=== PATIENT | female | born 1985 | race Caucasian/White ===

== ENCOUNTER 2018-03-18 18:02 | Outpatient (REF) | payer MEDICAID, SELFPAY ==
--- NOTE | 2018-03-18 15:00 | PAPFTD_PTH ---
PATIENT: EMA MCCARTHY LOC: [facility] U#:[id number] AGE/SX: 32/F ROOM: RE03/18/[address]: aSrah Kam CNM : 1985 BED: DIS: 03/18/2018 SPEC #: [id number] RECD: 03/18/18 18:29 STATUS: AMANDA REYared #: [id number] FLACO: 03/18/18 15:[address]: Sarah Kam DEPT: [facility] Cytology RECD BY: Jaci Negron ENTERED: 03/18/18 18:30 SP TYPE: PAPFTD OTHR DR: Bozena Tom Tissues: 1 - CX/ENDOCX FOR PAP SMEARS Procedures: PAP THIN PREP/UVM Diagnostic HPV DNA PROBE Comments: [id number]
== END 2018-03-18 18:22 ==
LOC: LBN 18:02
PROVIDERS: PCP Family Medicine; Visit Provider Advanced Practice Midwife
DX: Z12.4 Encounter for screening for malignant neoplasm of cervix (principal); Z11.51 Encounter for screening for human papillomavirus (HPV)
CPT/HCPCS: 88175; 87624

== ENCOUNTER 2018-06-20 01:40 | Outpatient (CLI) | payer MEDICAID, SELFPAY ==
--- NOTE | 2018-06-20 15:30 | NS.NUTBLAN_ITS ---
Ms. Summers presents for nutritional counseling for weight management. 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 She reports that she is having trouble losing her weight. She is currently 65 and 181 lbs. Her BMI is 30 kg/m2 consistent with class 1 obesity. She states she would like to get back to her pre weight of 150 to 160 lbs. Ms. Summers describes being very busy caring for her three young children and then when it comes time for her to eat, she will just grab sweets. She is going to start doing one meal replacement shake. Encouraged her to keep up with that idea. I suggested that for two other meals, she have bagged salads or other pre-made meals available for her even though that is not usually ideal. We discussed that in her case, the alternative is not working well for her. Ms. Summers verbalized that she knows what she has to do and that she has no motivation. We discussed that the motivation will have to come from within her and figuring out her barriers and continuing to work with a therapist will help with that as well. Provided some written materials regarding general nutrition information. Total time spent face to face 35 minutes.
== END 2018-06-20 02:00 ==
PROVIDERS: PCP Family Medicine; Visit Provider Dietitian, Registered
DX: E66.8 Other obesity (principal); Z68.30 Body mass index [BMI] 30.0-30.9, adult; Z71.3 Dietary counseling and surveillance
CPT/HCPCS: 97802

== ENCOUNTER 2018-07-20 15:25 | Observation (INO) | payer MEDICAID, SELFPAY ==
[2018-07-20] VITALS (12 sets, daily range): BP systolic 101–141; BP diastolic 60–69; PULSE 69–91; RESP 13–18; TEMP 36.5–36.7; O2SAT 98–100
[2018-07-20] MEDS: Lidocaine 5% Patch 1 PATCH TP (15:37)
--- NOTE | 2018-07-20 15:42 | DI.CT_ITS ---
SYMPTOM/DIAGNOSIS: RT NECK PAIN, ? CAROTID OR VERTEBRAL DISSECTION, ? STROKE CRANIAL CT (WITHOUT CONTRAST): A noncontrast cranial CT was performed. The ventricular system is normal in appearance. There is no evidence of an intracranial mass lesion. There is no evidence of a subdural or epidural hematoma. No focal areas of decreased attenuation are seen. CONCLUSION: Normal noncontrast Cranial CT. CT ANGIOGRAPHY CERVICAL REGION: CT angiography was performed with multi slice acquisition and multi planar and 3D reconstruction. CT angiography of the cervical region was performed with a bolus infusion of 78 cc's of Omnipaque 350. Images obtained through the region of the aortic arch show no evidence of aortic dissection. Common carotid arteries, internal carotid arteries and external carotid arteries appear intact bilaterally. Left vertebral artery is unremarkable in appearance. There is an apparent dissection of the right vertebral artery at the C 6 vertebral level. There is no evidence of occlusion. Remainder of the vertebral arteries unremarkable. Left vertebral artery is unremarkable in appearance as well. There is a right dominant vertebral circulation. Basilar artery appears intact. Intracranial portions of internal carotid arteries are unremarkable. The middle cerebral, anterior cerebral and posterior cerebral arteries appear unremarkable bilaterally. CONCLUSION: Findings consistent with right vertebral artery dissection with significant narrowing at this level, from approximately inferior endplate of C 6 to superior endplate of C 5. No additional findings on this examination. CT ANGIOGRAPHY BRAIN: CT angiography was performed with multi slice acquisition and multi planar and 3D reconstruction. CT angiography of the brain was performed with a bolus infusion of 82 cc's of Omnipaque 350. Please see dictation for the extracranial CTA which showed vertebral artery dissection. The vertebral basilar circulation is unremarkable in appearance in the posterior fossa. The posterior cerebral arteries appear normal bilaterally as do their major branches. Intracranial internal carotid arteries are unremarkable. Middle cerebral and anterior cerebral arteries and major branches appear intact. CONCLUSION: No significant intracranial CTA findings.
[2018-07-20] MEDS: Acetaminophen 500 MG TAB 1000 MG PO (15:56)
[2018-07-20] MEDS: Ibuprofen 800 MG TAB PO (15:56)
--- NOTE | 2018-07-20 16:01 | W.ED.GENAD ---
Discharge Plan Disposition Patient Disposition: [facility] INPATIENT Condition: Stable Discharge Details Chief Complaint: Nk/Back Pain Clinical Impression: Dissection, vertebral artery Primary Care Provider: Bozena Tom ED Provider: Coleman Smith Home Meds and New Rx's Prescriptions: No Action cholecalciferol (vitamin D3) 1,000 unit capsule 1,000 unit PO DAILY RF: 0 multivitamin [Multiple Vitamins] Tablet 1 tab PO DAILY RF: 0 ferrous sulfate [iron] 325 mg (65 mg iron) Tablet 325 mg PO DAILY RF: 0 omega 3-dze-xic-fish oil [Fish Oil] 1,000 mg (120 mg-180 mg) Capsule 1 cap PO DAILY RF: 0 Medical Decision Making This is a 33-year-old female with no past medical history who presents for 4 days of right-sided neck pain. She denies any traumatic event that brought this on, or any exercise. Symptoms have gradually worsened over the last 4 days, her symptoms have been unchanged and unimproved by heat, stretching, or icy hot. Chiropractor is also not able to improve or change her symptoms. Exam demonstrates no bruits, however concerningly the patient is complaining of radiation of pain down the right shoulder, and into the arm. Dissection is unlikely, however her symptoms and clinical history do feel slightly atypical for simple musculoskeletal component. She has a normal neurologic exam, no complaints of headache, no nuchal rigidity. No family history of cardiac disease, and signs and symptoms and consistent with ACS. Will get a CT scan to evaluate the vasculature of the neck, rule out dissection, as well as other significant pathology including abscess. We will apply Lidoderm patch, give NSAIDs, and reassess. 5:[address] results have returned and the patient has had demonstration of a right-sided vertebral artery dissection as noted by radiology. We will extend imaging to include the head at this time. I did contact [facility] and spoke with the vascular surgeon Dr. Vazquez, at this time he recommends no acute procedure as this was nontraumatic in nature. He does recommend discussion of the case with neurology. We are waiting a callback at this time. 6:08 PM I have discussed the case with Dr. Beltre from [facility] neurology. She has no additional recommendations at this time aside for antiplatelet therapy and MRI/MRA of the head neck with outpatient neurology follow-up. Still pending CT head results at this time. Pending these results we will start 325 aspirin daily, then discussed case with hospitalist for admission. 8:30 PM I discussed the case with , he agrees with the assessment plan. I will put in bridging orders per his request. I have extensively reviewed the treatment plan with the patient. I have addressed all patient concerns at this time. I have also discussed the plan with the admitting physician and they agree with the current assessment and plan and have agreed to assume responsibility for the patient. All parties demonstrate verbal understanding and agreement with our assessment and plan at this time. EKG 16: 39 Rate 75, intervals normal, sinus rhythm, no significant ST elevations or depressions, inverted T wave in V1, no Q waves. No signs of right heart strain. FINDINGS: VASCULATURE: Right common carotid artery: Normal. No significant stenosis. No dissection or occlusion. Right internal carotid artery: Normal. Extracranial segment is patent with no significant stenosis. No dissection or occlusion. Right external carotid artery: Normal. No occlusion or significant stenosis. Right vertebral artery: There is an approximate 3 cm long segment of significant narrowing of the proximal right vertebral artery from the level of the C6-C7 disc space to the level of the C4-C5 disc space with tiny intimal flap visible on axial image 37 of series 9, consistent with right vertebral dissection. The remainder of the right vertebral artery is widely patent. Left common carotid artery: Normal. No significant stenosis. No dissection or occlusion. Left internal carotid artery: Normal. Extracranial segment is patent with no significant stenosis. No dissection or occlusion. Left external carotid artery: Normal. No occlusion or significant stenosis. Left vertebral artery: Normal. No significant stenosis. No dissection or occlusion. NECK: Bones/joints: No acute fracture. Soft tissues: Normal. No significant soft tissue swelling. IMPRESSION: Right proximal vertebral artery dissection, measuring approximately 3 cm. COMMENT: Reference per NASCET criteria for degree of stenosis: Mild: less than 50% stenosis. Moderate: 50-69% stenosis. Severe: 70-94% stenosis. Near occlusion: 95-99% stenosis. Dictated and Authenticated by: Marcin German MD. Ordering:LUCINDA Cee MD EXAM: CT Angiography Head With Contrast EXAM DATE/TIME: 07/20/2018 5:14 PM CLINICAL HISTORY: 33 years old, female; Abnormal findings; Other abnormal imaging; Patient HX: Right vertebral art dissection TECHNIQUE: Imaging protocol: Axial computed tomographic angiography images of the head with intravenous contrast using CT angiography protocol. 3D rendering: MIP reconstructed images were created and reviewed. COMPARISON: CT CAROTID NECK CTA 07/20/2018 4:12 PM FINDINGS: Right internal carotid artery: Unremarkable. Intracranial segment is patent with no significant stenosis. No aneurysm. Right anterior cerebral artery: Unremarkable. No occlusion or significant stenosis. No aneurysm. Right middle cerebral artery: Unremarkable. No occlusion or significant stenosis. No aneurysm. Right posterior cerebral artery: Unremarkable. No occlusion or significant stenosis. No aneurysm. Right vertebral artery: Unremarkable. No occlusion or significant stenosis. No aneurysm. Left internal carotid artery: Unremarkable. Intracranial segment is patent with no significant stenosis. No aneurysm. Left anterior cerebral artery: Unremarkable. No occlusion or significant stenosis. No aneurysm. Left middle cerebral artery: Unremarkable. No occlusion or significant stenosis. No aneurysm. Left posterior cerebral artery: Unremarkable. No occlusion or significant stenosis. No aneurysm. Left vertebral artery: Unremarkable. No occlusion or significant stenosis. No aneurysm. Basilar artery: Unremarkable. No occlusion or significant stenosis. No aneurysm. IMPRESSION: No acute findings. Thank you for allowing us to participate in the care of your patient. Dictated and Authenticated by: Marcin German MD CT Head Without Contrast EXAM DATE/TIME: 07/20/2018 5:14 PM CLINICAL HISTORY: 33 years old, female; Pain; Other: Neck/back; Patient HX: Neck/back pain; Additional info: R/O stroke TECHNIQUE: Imaging protocol: Axial computed tomography images of the head/brain without contrast. Radiation optimization: All CT scans at this facility use at least one of these dose optimization techniques: automated exposure control; mA and/or kV adjustment per patient size (includes targeted exams where dose is matched to clinical indication); or iterative reconstruction. COMPARISON: CT CAROTID NECK CTA 07/20/2018 4:12 PM FINDINGS: Brain: No intracranial hemorrhage or mass effect. The CSF spaces and brain parenchyma density are within normal limits. No CT scan evidence of acute stroke. Ventricles: Unremarkable. No ventriculomegaly. Bones/joints: Unremarkable. No acute fracture. Sinuses: Visualized sinuses are unremarkable. No acute sinusitis. Mastoid air cells: Visualized mastoid air cells are unremarkable. No mastoid effusion. Soft tissues: Unremarkable. IMPRESSION: No acute abnormality. HPI General Date/Time Provider Initiated Documentation: 07/20/18 15:25. HPI Narrative: This is a pleasant 33-year-old female with no significant past medical history who presents today for evaluation of right-sided neck pain for last 4 days. Pain began relatively gradually 4 days ago, she describes it as sharp in nature, located on the right side of her neck, worse with movement. She does not recall any traumatic event, stretching event, or significant exercise at let up to it. She has been using heat, icy hot, and these have not improved her symptoms. Have made no changes. Additionally she went saw her chiropractor and after manipulation she also had no improvement. She denies any worsening of her symptoms after the chiropractor. Patient states that the pain is now starting to radiate down her shoulder into her arm. She states that her arm feels slightly more weak compared to normal, however she denies any numbness or tingling. She denies any headache, chest pain, or shortness of breath. She denies any dizziness, vision changes, lightheadedness, ataxia, or other complaints. She denies any pertinent family history of AAA, dissection, Marfan syndrome, Jabari-Danlos syndrome, or polycystic kidney disease. She has no other complaints at this time. No other modifying factors Related Data Home Medications Medication Instructions Recorded Confirmed cholecalciferol (vitamin D3) 1,000 1,000 unit PO DAILY 03/18/18 03/18/18 unit capsule ferrous sulfate [iron] 325 mg PO DAILY 07/20/18 07/20/18 multivitamin [Multiple Vitamins] 1 tab PO DAILY 07/20/18 07/20/18 omega 8-stk-fjd-fish oil [Fish Oil] 1 cap PO DAILY 07/20/18 07/20/18 Allergies Allergy/AdvReac Type Severity Reaction Status Date / Time No Known Allergies Allergy Unverified 07/20/18 15:31 General Stated Complaint: Nk/Back Pain MARCUS: 4 Review of Systems Review of Systems All systems reviewed & are unremarkable except as noted in HPI and below PFSH Family History Father Myocardial infarction Mother Kidney stones Social History Smoking/Tobacco Use Status: Never Alcohol Intake: never Drug use: Never Substance use type: does not use Do you feel safe in your relationship?: Yes Exam Narrative Exam Narrative: 1.Const: Well-nourished, Well-developed, appearing stated age 2.Eyes: PERRL, no conjunctival injection, and symmetrical lids. 3.ENT: Atraumatic external nose and ears. Moist MM. Neck: Symmetric, trachea midline, No thyromegaly. 4.CVS: +S1/S2, No murmurs or gallops. Peripheral pulses 2+ and equal in all extremities. Brisk capillary refill in all extremities. No carotid bruit or vertebral artery bruits 5.RESP: Unlabored respiratory effort. Clear to auscultation bilaterally. No wheezes rales or rhonchi 6.GI: Soft, Nontender/Nondistended, No hepatosplenomegaly. No guarding or rebound. 7.MSK: Normocephalic/Atraumatic, Extremities w/o deformity or ttp No cyanosis or clubbing, Normal movement of all extremities. No midline tenderness to palpation over the CTLS spine. Slight restriction for side bending to the left, as well as rotation of the neck in both directions. Patient has +5 out of 5 strength in the lower extremities in dorsiflexion and plantarflexion, knee flexion and extension, hip flexion and extension. There is normal sensation to the skin with light touch at the foot, knee, and hip. Normal saddle sensation. Good sensation over the deep sural nerve area bilaterally. Rectal exam deferred. +5 out of 5 strength in the medial, ulnar, radial nerve distribution bilaterally in the hands as well as intact light touch sensation to these dermatomes on the hands. Capillary refill is brisk in all fingers, radial pulse +2 bilaterally 8.Skin: Warm, Dry. No rashes or lesions. 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 Sensation grossly intact, no focal neurologic deficits. All 6 cardinal planes of vision are fully intact. No evidence of rotatory or vertical nystagmus. The patient demonstrated a normal [id number]-vube-sbiojc, good dexterity. There was no evidence of dysdiadochokinesia. Patient was able to ambulate without difficulty. There was no wide-based gait. Romberg, and ybhe-oy-oupa are both normal on testing. Sensation was intact bilaterally as well as muscle strength bilaterally for all extremities. Patient was able to verbalize butter cup with no slurring, or miss pronunciation. 10.Psych: (AAO) x3. Appropriate mood and affect Course Vital Signs Temperature 36.5 C 07/20/18 15:27 Pulse 78 07/20/18 15:27 Respiratory Rate 16 07/20/18 15:27 Blood Pressure 141/68 H 07/20/18 15:27 Pulse Oximetry 100 07/20/18 15:27 Temperature 36.5 C 07/20/18 15:27 Temperature Source Skin 07/20/18 15:27 Pulse 78 07/20/18 15:27 Respiratory Rate 16 07/20/18 15:27 Respiratory Effort Non-Labored 07/20/18 15:29 Blood Pressure 141/68 H 07/20/18 15:27 Pulse Oximetry 100 07/20/18 15:27 Pain Level 10 07/20/18 15:33
[2018-07-20 16:08] LABS: Anion Gap 9.8 mmol/L (3-11); BUN 18 mg/dL (7-18); CO2 27.2 mmol/L (21.0-32.0); CREATININE 0.85 mg/dL (0.55-1.02); Chloride 103 mmol/L (98-107); Glucose 90 mg/dL (70-100); Potassium 3.9 mmol/L (3.5-5.1); Sodium 140 mmol/L (136-145)
--- NOTE | 2018-07-20 16:08 | ED.GENADUL_ITS ---
Discharge Plan Disposition Patient Disposition: [facility] INPATIENT Condition: Stable Discharge Details Chief Complaint: Nk/Back Pain Clinical Impression: Dissection, vertebral artery Primary Care Provider: Bozena Tom ED Provider: Coleman Smith Home Meds and New Rx's Prescriptions: No Action cholecalciferol (vitamin D3) 1,000 unit capsule 1,000 unit PO DAILY RF: 0 multivitamin [Multiple Vitamins] Tablet 1 tab PO DAILY RF: 0 ferrous sulfate [iron] 325 mg (65 mg iron) Tablet 325 mg PO DAILY RF: 0 omega 5-tog-iju-fish oil [Fish Oil] 1,000 mg (120 mg-180 mg) Capsule 1 cap PO DAILY RF: 0 Medical Decision Making This is a 33-year-old female with no past medical history who presents for 4 days of right-sided neck pain. She denies any traumatic event that brought this on, or any exercise. Symptoms have gradually worsened over the las t 4 days, her symptoms have been unchanged and unimproved by heat, stretching, or icy hot. Chiropractor is also not able to improve or change her symptoms. Exam demonstrates no bruits, however concerningly the patient is complaining of radiation of pain down the right shoulder, and into the arm. Dissection is unlikely, however her symptoms and clinical history do feel slightly atypical for simple musculoskeletal component. She has a normal neurologic exam, no complaints of headache, no nuchal rigidity. No family history of cardiac disease, and signs and symptoms and consistent with ACS. Will get a CT scan to evaluate the vasculature of the neck, rule out dissection, as well as other significant pathology including abscess. We will apply Lidoderm patch, give NSAIDs, and reassess. 5:[address] results have returned and the patient has had demonstration of a right-sided vertebral artery dissection as noted by radiology. We will extend imaging to include the head at this time. I did contact [facility] and spoke with the vascular surgeon Dr. Vazquez, at this time he recommends no acute procedure as this was nontraumatic in nature. He does recommend discussion of the case with neurology. We are waiting a callback at this time. 6:08 PM I have discussed the case with Dr. Beltre from [facility] neurology. She has no additional recommendations at this time aside for antiplatelet therapy and MRI/MRA of the head neck with outpatient neurology follow-up. Still pending CT head results at this time. Pending these results we will start 325 aspirin daily, then discussed case with hospitalist for admission. 8:30 PM I discussed the case with , he agrees with the assessment plan. I will put in bridging orders per his request. I have extensively reviewed the treatment plan with the patient. I have addressed all patient concerns at this time. I have also discussed the plan with the admitting physician and they agree with the current assessment and plan and have agreed to assume responsibility for the patient. All parties demonstrate verbal understanding and agreement with our assessment and plan at this time. EKG 16: 39 Rate 75, intervals normal, sinus rhythm, no significant ST elevations or depressions, inverted T wave in V1, no Q waves. No signs of right heart strain. FINDINGS: VASCULATURE: Right common carotid artery: Normal. No significant stenosis. No dissection or occlusion. Right internal carotid artery: Normal. Extracranial segment is patent with no significant stenosis. No dissection or occlusion. Right external carotid artery: Normal. No occlusion or significant stenosis. Right vertebral artery: There is an approximate 3 cm long segment of significant narrowing of the proximal right vertebral artery from the level of the C6-C7 disc space to the level of the C4-C5 disc space with tiny intimal flap visible on axial image 37 of series 9, consistent with right vertebral dissection. The remainder of the right vertebral artery is widely patent. Left common carotid artery: Normal. No significant stenosis. No dissection or occlusion. Left internal carotid artery: Normal. Extracranial segment is patent with no significant stenosis. No dissection or occlusion. Left external carotid artery: Normal. No occlusion or significant stenosis. Left vertebral artery: Normal. No significant stenosis. No dissection or occlusion. NECK: Bones/joints: No acute fracture. Soft tissues: Normal. No significant soft tissue swelling. IMPRESSION: Right proximal vertebral artery dissection, measuring approximately 3 cm. COMMENT: Reference per NASCET criteria for degree of stenosis: Mild: less than 50% stenosis. Moderate: 50-69% stenosis. Severe: 70-94% stenosis. Near occlusion: 95-99% stenosis. Dictated and Authenticated by: Marcin German MD. Ordering:LUCINDA Cee MD EXAM: CT Angiography Head With Contrast EXAM DATE/TIME: 07/20/2018 5:14 PM CLINICAL HISTORY: 33 years old, female; Abnormal findings; Other abnormal imaging; Patient HX: Right vertebral art dissection TECHNIQUE: Imaging protocol: Axial computed tomographic angiography images of the head with intravenous contrast using CT angiography protocol. 3D rendering: MIP reconstructed images were created and reviewed. COMPARISON: CT CAROTID NECK CTA 07/20/2018 4:12 PM FINDINGS: Right internal carotid artery: Unremarkable. Intracranial segment is patent with no significant stenosis. No aneurysm. Right anterior cerebral artery: Unremarkable. No occlusion or significant stenosis. No aneurysm. Right middle cerebral artery: Unremarkable. No occlusion or significant stenosis. No aneurysm. Right posterior cerebral artery: Unremarkable. No occlusion or significant stenosis. No aneurysm. Right vertebral artery: Unremarkable. No occlusion or significant stenosis. No aneurysm. Left internal carotid artery: Unremarkable. Intracranial segment is patent with no significant stenosis. No aneurysm. Left anterior cerebral artery: Unremarkable. No occlusion or significant stenosis. No aneurysm. Left middle cerebral artery: Unremarkable. No occlusion or significant stenosis. No aneurysm. Left posterior cerebral artery: Unremarkable. No occlusion or significant stenosis. No aneurysm. Left vertebral artery: Unremarkable. No occlusion or significant stenosis. No aneurysm. Basilar artery: Unremarkable. No occlusion or significant stenosis. No aneurysm. IMPRESSION: No acute findings. Thank you for allowing us to participate in the care of your patient. Dictated and Authenticated by: Marcin German MD CT Head Without Contrast EXAM DATE/TIME: 07/20/2018 5:14 PM CLINICAL HISTORY: 33 years old, female; Pain; Other: Neck/back; Patient HX: Neck/back pain; Additional info: R/O stroke TECHNIQUE: Imaging protocol: Axial computed tomography images of the head/brain without contrast. Radiation optimization: All CT scans at this facility use at least one of these dose optimization techniques: automated exposure control; mA and/or kV adjustment per patient size (includes targeted exams where dose is matched to clinical indication); or iterative reconstruction. COMPARISON: CT CAROTID NECK CTA 07/20/2018 4:12 PM FINDINGS: Brain: No intracranial hemorrhage or mass effect. The CSF spaces and brain parenchyma density are within normal limits. No CT scan evidence of acute stroke. Ventricles: Unremarkable. No ventriculomegaly. Bones/joints: Unremarkable. No acute fracture. Sinuses: Visualized sinuses are unremarkable. No acute sinusitis. Mastoid air cells: Visualized mastoid air cells are unremarkable. No mastoid effusion. Soft tissues: Unremarkable. IMPRESSION: No acute abnormality. HPI General Date/Time Provider Initiated Documentation: 07/20/18 15:25 . HPI Narrative: This is a pleasant 33-year-old female with no significant past medical history who presents today for evaluation of right-sided neck pain for last 4 days. Pain began relatively gradually 4 days ago, she describes it as sharp in nature, located on the right side of her neck, worse with movement. She does not recall any traumatic event, stretching event, or significant exercise at let up to it. She has been using heat, icy hot, and these have not improved her symptoms. Have made no changes. Additionally she went saw her chiropractor and after manipulation she also had no improvement. She denies any worsening of her symptoms after the chiropractor. Patient states that the pain is now starting to radiate down her shoulder into her arm. She states that her arm feels slightly more weak compared to normal, however she denies any numbness or tingling. She denies any headache, chest pain, or shortness of breath. She denies any dizziness, vision changes, lightheadedness, ataxia, or other complaints. She denies any pertinent family history of AAA, dissection, Marfan syndrome, Jabari-Danlos syndrome, or polycystic kidney disease. She has no other complaints at this time. No other modifying factors Related Data Home Medications Medication Instructions Recorded Confirmed cholecalciferol (vitamin D3) 1,000 1,000 unit PO DAILY 03/18/18 03/18/18 unit capsule ferrous sulfate [iron] 325 mg PO DAILY 07/20/18 07/20/18 multivitamin [Multiple Vitamins] 1 tab PO DAILY 07/20/18 07/20/18 omega 4-tqt-pxp-fish oil [Fish Oil] 1 cap PO DAILY 07/20/18 07/20/18 Allergies Allergy/AdvReac Type Severity Reaction Status Date / Time No Known Allergies Allergy Unverified 07/20/18 15:31 General Stated Complaint: Nk/Back Pain MARCUS: 4 Review of Systems Review of Systems All systems reviewed & are unremarkable except as noted in HPI and below PFSH Family History Father Myocardial infarction Mother Kidney stones Social History Smoking/Tobacco Use Status: Never Alcohol Intake: never Drug use: Never Substance use type: does not use Do you feel safe in your relationship?: Yes Exam Narrative Exam Narrative: 1.Const: Well-nourished, Well-developed, appearing stated age 2.Eyes: PERRL, no conjunctival injection, and symmetrical lids. 3.ENT: Atraumatic external nose and ears. Moist MM. Neck: Symmetric, trachea midline, No thyromegaly. 4.CVS: +S1/S2, No murmurs or gallops. Peripheral pulses 2+ and equal in all extremities. Brisk capillary refill in all extremities. No carotid bruit or vertebral artery bruits 5.RESP: Unlabored respiratory effort. Clear to auscultation bilaterally. No wheezes rales or rhonchi 6.GI: Soft, Nontender/Nondistended, No hepatosplenomegaly. No guarding or rebound. 7.MSK: Normocephalic/Atraumatic, Extremities w/o deformity or ttp No cyanosis or clubbing, Normal movement of all extremities. No midline tenderness to pa lpation over the CTLS spine. Slight restriction for side bending to the left, as well as rotation of the neck in both directions. Patient has +5 out of 5 strength in the lower extremities in dorsiflexion and plantarflexion, knee flexion and extension, hip flexion and extension. There is normal sensation to the skin with light touch at the foot, knee, and hip. Normal saddle sensation. Good sensation over the deep sural nerve area bilaterally. Rectal exam deferred. +5 out of 5 strength in the medial, ulnar, radial nerve distribution bilaterally in the hands as well as intact light touch sensation to these dermatomes on the hands. Capillary refill is brisk in all fingers, radial pulse +2 bilaterally 8.Skin: Warm, Dry. No rashes or lesions. 9.Neuro: edge inker uppers II-XII grossly intact. Sensation grossly intact, no focal neurologic deficits. All 6 cardinal planes of vision are fully intact. No evidence of rotatory or vertical nystagmus. The patient demonstrated a normal psxqgb-glmf-cntxqg, good dexterity. There was no evidence of dysdiadochokinesia. Patient was able to ambulate without difficulty. There was no wide-based gait. Romberg, and byjw-cf-fiva are both normal on testing. Sensation was intact bilaterally as well as muscle strength bilaterally for all extremities. Patient was able to verbalize butter cup with no slurring, or miss pronunciation. 10.Psych: (AAO) x3. Appropriate mood and affect Course Vital Signs Temperature 36.5 C 07/20/18 15:27 Pulse 78 07/20/18 15:27 Respiratory Rate 16 07/20/18 15:27 Blood Pressure 141/68 H 07/20/18 15:27 Pulse Oximetry 100 07/20/18 15:27 Temperature 36.5 C 07/20/18 15:27 Temperature Source Skin 07/20/18 15:27 Pulse 78 07/20/18 15:27 Respiratory Rate 16 07/20/18 15:27 Respiratory Effort Non-Labored 07/20/18 15:29 Blood Pressure 141/68 H 07/20/18 15:27 Pulse Oximetry 100 07/20/18 15:27 Pain Level 10 07/20/18 15:33
[2018-07-20] MEDS: Omnipaque 350 MG/ML 50 ML BTL IJ (16:38)
[2018-07-20] MEDS: Lidocaine 5% Patch 1 PATCH (16:48)
--- NOTE | 2018-07-20 17:02 | DI.VRAD_ITS ---
Addendum created by Marcin German MD on 07/20/2018 5:07:07 PM EDT I personally discussed the findings with JANA MACKAY on 07/20/2018 at 5:07 PM EDT by telephone conference call. Initial report created on 07/20/2018 5:02:24 PM EDT EXAM: CT Angiography Neck With Contrast EXAM DATE/TIME: 07/20/2018 3:45 PM CLINICAL HISTORY: 33 years old, female; Pain; Other: Neck pain; Patient HX: R neck pain, R/O carotidr neck pain, TECHNIQUE: Imaging protocol: Axial computed tomographic angiography images of the neck with intravenous contrast using CT angiography protocol. 3D rendering: MIP reconstructed images were created and reviewed. Radiation optimization: All CT scans at this facility use at least one of these dose optimization techniques: automated exposure control; mA and/or kV adjustment per patient size (includes targeted exams where dose is matched to clinical indication); or iterative reconstruction. Contrast material: 0mnipaque Contrast volume: 78 ml Contrast route: rt ac COMPARISON: No relevant prior studies available. FINDINGS: VASCULATURE: Right common carotid artery: Normal. No significant stenosis. No dissection or occlusion. Right internal carotid artery: Normal. Extracranial segment is patent with no significant stenosis. No dissection or occlusion. Right external carotid artery: Normal. No occlusion or significant stenosis. Right vertebral artery: There is an approximate 3 cm long segment of significant narrowing of the proximal right vertebral artery from the level of the C6-C7 disc space to the level of the C4-C5 disc space with tiny intimal flap visible on axial image 37 of series 9, consistent with right vertebral dissection. The remainder of the right vertebral artery is widely patent. Left common carotid artery: Normal. No significant stenosis. No dissection or occlusion. Left internal carotid artery: Normal. Extracranial segment is patent with no significant stenosis. No dissection or occlusion. Left external carotid artery: Normal. No occlusion or significant stenosis. Left vertebral artery: Normal. No significant stenosis. No dissection or occlusion. NECK: Bones/joints: No acute fracture. Soft tissues: Normal. No significant soft tissue swelling. IMPRESSION: Right proximal vertebral artery dissection, measuring approximately 3 cm. COMMENT: Reference per NASCET criteria for degree of stenosis: Mild: less than 50% stenosis. Moderate: 50-69% stenosis. Severe: 70-94% stenosis. Near occlusion: 95-99% stenosis. Dictated and Authenticated by: Marcin German MD. Ordering:LUCINDA Cee MD
--- NOTE | 2018-07-20 19:00 | DI.VRAD_ITS ---
EXAM: CT Head Without Contrast EXAM DATE/TIME: 07/20/2018 5:14 PM CLINICAL HISTORY: 33 years old, female; Pain; Other: Neck/back; Patient HX: Neck/back pain; Additional info: R/O stroke TECHNIQUE: Imaging protocol: Axial computed tomography images of the head/brain without contrast. Radiation optimization: All CT scans at this facility use at least one of these dose optimization techniques: automated exposure control; mA and/or kV adjustment per patient size (includes targeted exams where dose is matched to clinical indication); or iterative reconstruction. COMPARISON: CT CAROTID NECK CTA 07/20/2018 4:12 PM FINDINGS: Brain: No intracranial hemorrhage or mass effect. The CSF spaces and brain parenchyma density are within normal limits. No CT scan evidence of acute stroke. Ventricles: Unremarkable. No ventriculomegaly. Bones/joints: Unremarkable. No acute fracture. Sinuses: Visualized sinuses are unremarkable. No acute sinusitis. Mastoid air cells: Visualized mastoid air cells are unremarkable. No mastoid effusion. Soft tissues: Unremarkable. IMPRESSION: No acute abnormality. Dictated and Authenticated by: Marcin German MD. Ordering:LUCINDA Cee MD
[2018-07-20] MEDS: Omnipaque 350 MG/ML 100 ML BTL IJ (19:07)
--- NOTE | 2018-07-20 19:11 | DI.VRAD_ITS ---
EXAM: CT Angiography Head With Contrast EXAM DATE/TIME: 07/20/2018 5:14 PM CLINICAL HISTORY: 33 years old, female; Abnormal findings; Other abnormal imaging; Patient HX: Right vertebral art dissection TECHNIQUE: Imaging protocol: Axial computed tomographic angiography images of the head with intravenous contrast using CT angiography protocol. 3D rendering: MIP reconstructed images were created and reviewed. COMPARISON: CT CAROTID NECK CTA 07/20/2018 4:12 PM FINDINGS: Right internal carotid artery: Unremarkable. Intracranial segment is patent with no significant stenosis. No aneurysm. Right anterior cerebral artery: Unremarkable. No occlusion or significant stenosis. No aneurysm. Right middle cerebral artery: Unremarkable. No occlusion or significant stenosis. No aneurysm. Right posterior cerebral artery: Unremarkable. No occlusion or significant stenosis. No aneurysm. Right vertebral artery: Unremarkable. No occlusion or significant stenosis. No aneurysm. Left internal carotid artery: Unremarkable. Intracranial segment is patent with no significant stenosis. No aneurysm. Left anterior cerebral artery: Unremarkable. No occlusion or significant stenosis. No aneurysm. Left middle cerebral artery: Unremarkable. No occlusion or significant stenosis. No aneurysm. Left posterior cerebral artery: Unremarkable. No occlusion or significant stenosis. No aneurysm. Left vertebral artery: Unremarkable. No occlusion or significant stenosis. No aneurysm. Basilar artery: Unremarkable. No occlusion or significant stenosis. No aneurysm. IMPRESSION: No acute findings. Dictated and Authenticated by: Marcin German MD. Ordering:LUCINDA Cee MD
[2018-07-20] MEDS: Cyclobenzaprine 10 MG TAB PO (20:32)
[2018-07-20] MEDS: Aspirin 81 MG CHEW 324 MG CH (20:32)
--- NOTE | 2018-07-20 22:37 | HPE_ITS ---
Date of service: 07/20/18 Time of Service: 22:37 Assessment and Plan (1) Dissecting hemorrhage of right vertebral artery: Current visit: Yes Status: Acute observation w/ neuro checks. No evidence of acute TIA/CVA and therefore no need for thrombolytics. Continue w/ antithrombotic meds including full dose asp irin. Avoid contact sports or physical activity affecting her neck including any rough housing w/ her children and no chiropractic treatments. Patient to have follow up MRA of head and neck and neurology follow up. She should remain on full dose Aspirin indefinitely until further guidance by neurology. History of Present Illness Chief Complaint: neck pain Narrative: 33 yr old female with no chronic medical illnesses who presents to the ER w/ 3 days of right sided neck pain w/ radiation down to her right shoulder not associated w/ any paresthesias, weakness, dizziness. She denies any trauma to her neck although she admits that her children with whom she plays with are often rough with her. She is w/ 1 spontaneous miscarriage and her children are 1 yr, 3 yr and 12 yr old. She is not a smoker and does not have hypertension. 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 the dissection causes narrowing from C6-C7 disc space to C4-C5 disc space. The CTA of head was unremarkable. Dr. João mSith, emergency room attending spoke w/ [facility] ([facility]) vascular surgeon, Dr. Vazquez who indicated that there would be no surgical intervention for this and recommended discussion w/ neurology. Dr. Smith then spoke w/ Dr. Beltre, neurologist from [facility] who recommended antiplatelet therapy and follow up MRI/MRA and outpatient neurology follow up. Upon review of her family hx she indicated that her father has heart problems when I asked her about this he apparently has had heart attack and stents however she is unsure as to whether or not he has had any aneurysms. Other than this there is no hx of aneurysms or unexplained strokes in any young members in her family and she is unaware of any connective tissue disorders. She has been receiving hospice patient care secretary weekly for past 4 weeks for upper back pains over the shoulders but no treatment for neck pains. Treatment in the ER included Tylenol for her neck pain and initiation of antiplatelet therapy w/ ASA 324 mg. Review of Systems Constitutional Reports system reviewed and no additional complaints, except as docu Neurologic Reports system reviewed and no additional complaints, except as docu PFSH Family History Father Myocardial infarction Mother Kidney stones Social History Smoking/Tobacco Use Status: Never Alcohol Intake: never Drug use: Never Substance use type: does not use Do you feel safe in your relationship?: Yes History History 4 Para Hx # Term Pregnancies 3 Multiple births Hx # Pregnancies Ectopic pregnancies AB induced Hx Number of Living Children 3 AB spontaneous 1 Meds Home Medications Medication Instructions Recorded Confirmed Type cholecalciferol (vitamin D3) 1,000 1,000 unit PO DAILY 03/18/18 03/18/18 History unit capsule ferrous sulfate [iron] 325 mg PO DAILY 07/20/18 07/20/18 History multivitamin [Multiple Vitamins] 1 tab PO DAILY 07/20/18 07/20/18 History omega 1-juu-pxd-fish oil [Fish Oil] 1 cap PO DAILY 07/20/18 07/20/18 History Allergies Allergy/AdvReac Type Severity Reaction Status Date / Time No Known Allergies Allergy Unverified 07/20/18 15:31 Exam Const General: cooperative, no acute distress and well groomed Nutritional Appearance: average body habitus and well nourished Orientation: alert, awake and oriented x3 HENMT Head: normal to inspection, no palpable skull fracture, normocephalic and atraumatic Ears: hearing grossly normal bilaterally Face and sinus: normal facial exam, sinuses nontender and face symmetric Eyes General: appearance normal, both eyes and all related structures Alignment and Position: alignment normal Periorbital: periorbital findings normal Eyelids: eyelids normal Conjunctivae: conjunctivae normal Sclera: sclerae normal Cornea: corneas normal Pupils: PERRL, normal by confrontation and accommodation normal EOM: EOM intact bilaterally Direct ophthalmoscopy: normal light reflex and no photophobia Neck Neck: normal visual inspection, no lymphadenopathy, trachea midline, supple and no JVD Thyroid: thyroid normal Carotids: normal carotid upstroke, bounding pulses and no bruits Lymphatic: no lymphadenopathy noted Resp Effort & Inspection: normal respiratory effort and able to speak in complete sentences Auscultation: clear to auscultation bilaterally Cardio Jugular venous pressure: no JVD Palpation: normal PMI Rate: regular rate Rhythm: regular rhythm Heart Sounds: S1 normal, S2 normal and normal, physiologic split S2 Pulses: normal peripheral pulses GI Inspection: normal to inspection Palpation: soft, no hepatosplenomegaly and nontender Percussion: normal to percussion Auscultation: normal bowel sounds Back/Spine/Pelvis Back: no CVA tenderness Cervical Spine: normal cervical lordosis and cervical muscular tenderness (u nable to perform full range of motion due to tenderness; no visible swell) Thoracic/Lumbar Spine: thoracic and lumbar spine normal to inspection and thoraco-lumbar ROM normal Skin General skin exam: no rashes or lesions noted, elasticity normal and turgor normal Lesions: no lesions Rashes: no rashes Trauma: no lacerations or abrasions Hair: normal Nails: normal Neuro General: alert, awake, oriented x3, moves all extremities and no focal motor deficits Cranial Nerves: CN's II-XI intact bilaterally, PERRL, accommodation normal, EOM intact bilaterally, no nystagmus, facial strength normal, tongue midline, hearing normal, able to rotate head bilaterally and able to elevate shoulders bilaterally Cognition: normal cognition Speech: speech normal Gait: normal gait Motor: muscle tone normal throughout, strength 5/5 throughout, no pronator drift, no movement abnormalities noted and no fasciculations Sensory Exam: no sensory deficits noted Extrem General: normal to inspection, full ROM, normal capillary refill, no joint enlargement, no clubbing, cyanosis or edema and no calf tenderness bilaterally Psych Appearance: grossly normal Mental Status: mental status grossly normal Speech and Movement: speech and movement normal Mood: congruent mood Affect: normal affect Attitude: cooperative Thought Process: normal Thought Content: normal Insight: insight good Judgment: judgment good Results Imaging Imaging Studies: CT angiography of cervical vessels: FINDINGS: VASCULATURE: Right common carotid artery: Normal. No significant stenosis. No dissection or occlusion. Right internal carotid artery: Normal. Extracranial segment is patent with no significant stenosis. No dissection or occlusion. Right external carotid artery: Normal. No occlusion or significant stenosis. Right vertebral artery: There is an approximate 3 cm long segment of significant narrowing of the proximal right vertebral artery from the level of the C6-C7 disc space to the level of the C4-C5 disc space with tiny intimal flap visible on axial image 37 of series 9, consistent with right vertebral dissection. The remainder of the right vertebral artery is widely patent. Left common carotid artery: Normal. No significant stenosis. No dissection or occlusion. Left internal carotid artery: Normal. Extracranial segment is patent with no significant stenosis. No dissection or occlusion. Left external carotid artery: Normal. No occlusion or significant stenosis. Left vertebral artery: Normal. No significant stenosis. No dissection or occlusion. NECK: Bones/joints: No acute fracture. Soft tissues: Normal. No significant soft tissue swelling. IMPRESSION: Right proximal vertebral artery dissection, measuring approximately 3 cm. Labs : 07/20/18 15:55 Laboratory Results - last 24 hr 07/20/18 15:55 Sodium 140 Potassium 3.9 Chloride 103 Carbon Dioxide 27.2 Anion Gap 9.8 BUN 18 Creatinine 0.85 Estimated GFR/1.73 m2 >= 60.00 Glucose 90 Calcium 9.0 Last Vital Signs Temp 36.7 C 07/20/18 21:49 Pulse 69 07/20/18 21:49 Resp 14 07/20/18 21:49 BP 115/69 07/20/18 21:49 Pulse Ox 99 07/20/18 21:49
[2018-07-21 03:30] VITALS: BP 102/61; PULSE 63; RESP 16; TEMP 36.6; O2SAT 97
[2018-07-21 07:33] LABS: Cholesterol 141 mg/dL (50-200); HDL Cholesterol 45 mg/dL (40-60); LDL CHOLESTEROL 84 mg/dL (<100); Triglyceride 79 mg/dL (30-150)
[2018-07-21 07:35] VITALS: BP 109/62; PULSE 68; RESP 18; TEMP 36.9; O2SAT 99
[2018-07-21 07:49] VITALS: BP 109/62; PULSE 68; RESP 18; TEMP 36.9; O2SAT 99
[2018-07-21] MEDS: Multivitamin TAB 1 TAB PO (07:55)
[2018-07-21] MEDS: Aspirin E.C. 325 MG TABEC PO (07:55)
[2018-07-21] MEDS: Omega-3 Fatty Acids 1000 MG CAP PO (07:55)
[2018-07-21] MEDS: Enoxaparin 40 MG/0.4 ML SYR SC (07:56)
[2018-07-21] MEDS: Ferrous Sulfate 325 MG TAB PO (07:56)
[2018-07-21] MEDS: Lidocaine 5% Patch 1 PATCH TP (07:58)
[2018-07-21] MEDS: Acetaminophen 325 MG TAB PO (08:07)
[2018-07-21] MEDS: Normal Saline Flush 10 ML SYR IVP (10:39)
[2018-07-21 11:45] VITALS: BP 109/71; PULSE 70; RESP 18; TEMP 36.5; O2SAT 98
--- NOTE | 2018-07-21 12:45 | W.PM.DS.N ---
Date of service: 07/21/18 Time of Service: 12:46 DS: Diagnosis Discharge Diagnosis (1) Dissecting hemorrhage of right vertebral artery: Status: Acute Discharge Plan Disposition Patient Disposition: HOME Condition: Stable Discharge Details Reason For Visit: VERTEBRAL ARTERY DISSECTION Admit Date/Time: 07/20/18 19:58 Admit Provider: Rob Villeda Attending Provider: Rob Villeda Primary Care Provider: Bozena Tom Hospital Course Hospital Course: CC: Neck Pain HPI: 33 year old healthy woman, admitted 07/20 from [facility] Emergency Department with a diagnosis of Right Vertebral Artery Dissection. Mrs. Summers presented to the ED with a 3 day complaint of right sided neck pain with reported radiation down to her right shoulder. Her symptoms were not associated with any paresthesias, weakness, chest discomfort, dyspnea, or dizziness. Work-up included fairly unremarkable labwork, but with imaging showing a 3 cm right proximal Vertebral Artery Dissection, specifically noted as significant narrowing from the level of the C4-5 disc space to C6-7, with a tiny intimal flap visible consistent in finding with a dissection. The patient denied any trauma to her neck, although she admitted that her children with whom she plays with are often rough with her. She is w/ 1 spontaneous miscarriage and her children are 1, 3, and 12 years of age. She also admitted to some chiropractic manipulation in the back, including of her neck. She is not a smoker and does not have hypertension. While in the ED [facility] Vascular Surgery (Dr. Vazquez) was consulted who indicated that there would be no surgical intervention for this and recommended discussion with neurology. Subsequent phone consultation with Dr. Beltre of [facility] Neurology recommended antiplatelet therapy and follow up MRI/MRA and outpatient neurology follow up. Hospital Course: (1) Right vertebral artery Dissection: Patient remained asymptomatic overnight, with no evidence of acute TIA/CVA. She will continue with full dose aspirin. In-depth discussion was had with patient, and she was advised to avoid contact sports or physical activity affecting her neck including any rough housing with her children, and no further chiropractic treatments. A follow-up MRI/MRA of the head and neck will be obtained, and patient will be scheduled with a PCP (she has no primary) and neurology. Warning symptoms were discussed in detail, and patient advised to return to the ED immediately if she developed any such symptoms or worsening/change in her condition. She will also be maintained on PPI therapy, and only tylenol for pain control (She is ). She should remain on full dose Aspirin indefinitely until further guidance by neurology. Of note, there appears to be no reported history of unusual cardiac or connective tissue disorders in family, per discussion with patient. This case was further discussed with neurology attending from [facility] who endorsed this plan fully - as long as the patient is not exhibiting any signs of acute CVA/TIA or other neurological changes, and as long as she remains compliant with daily aspirin and physical limitations in activity as detailed above, no further hospitalization or monitoring is required. Home Meds and New Rx's Prescriptions: New acetaminophen [Tylenol] 325 mg Tablet 325 - 650 mg PO Q4H PRN PRNQty: 0 RF: 0 aspirin 325 mg Tablet,Delayed Release (Dr/Ec) 325 mg PO DAILY Qty: 0 RF: 0 Continued cholecalciferol (vitamin D3) 1,000 unit capsule 1,000 unit PO DAILY RF: 0 multivitamin [Multiple Vitamins] Tablet 1 tab PO DAILY RF: 0 ferrous sulfate [iron] 325 mg (65 mg iron) Tablet 325 mg PO DAILY RF: 0 omega 7-sdx-kbk-fish oil [Fish Oil] 1,000 mg (120 mg-180 mg) Capsule 1 cap PO DAILY RF: 0 Discharge Instructions Additional Instructions: Please see a neurologist and Primary Care provider within 1 week of discharge. Information on these providers are being supplied to you at time of discharge. Stand Alone Forms: Nursing Discharge Form Referrals: Bozena Tom MD [Primary Care Provider] - (Please call Dr. Tom office on Sunday for a follow-up appointment for next week.) Activity:: No strenuous activity, contact sports, or physical activity involving the neck or heavy lifting. Equipment/Supplies:: No Equipment Needed Diet:: As Tolerated Discharge Orders Discharge Orders: Discharge Order (Routine); Ordered 07/21/18 Ordered By: Marcos Li DS: Data Vitals/I&O Vitals and I&O: Vital Signs Temperature 36.5 C 07/21/18 11:45 Temperature Source Tympanic 07/21/18 11:45 Pulse 70 07/21/18 11:45 Pulse Rhythm Regular 07/21/18 07:51 Pulse 75 07/20/18 18:10 Respiratory Rate 18 07/21/18 11:45 Respiratory Effort Non-Labored 07/21/18 07:51 Respiratory Depth Normal 07/21/18 07:51 Respiratory Pattern Normal 07/21/18 07:51 Blood Pressure 109/71 07/21/18 11:45 Pulse Oximetry 98 07/21/18 11:45 Oxygen Delivery Method Room Air 07/21/18 11:45 Oxygen Flow Rate 0 07/21/18 11:45 Pain Level 5 07/21/18 10:39 Comment 07/21/18 03:30 Intake & Output 07/20/18 07/21/18 07/21/18 23:59 11:59 23:59 Intake Total 110 / 110 Balance 110 / 110 Weight 77.111 kg 77.6 kg Intake: IV 10 / 10 Oral 100 / 100 Other: Urine Color Yellow Urine Appearance Clear Comment Pt voiding ad klarissa in toilet. Urine not seen at time of assessment. Pt denies sx. Voiding Methods Toilet Completed studies during hospitalization [Text1]: EXAM: CT Angiography Neck With Contrast EXAM DATE/TIME: 07/20/2018 3:45 PM CLINICAL HISTORY: 33 years old, female; Pain; Other: Neck pain; Patient HX: R neck pain, R/O carotidr neck pain, TECHNIQUE: Imaging protocol: Axial computed tomographic angiography images of the neck with intravenous contrast using CT angiography protocol. 3D rendering: MIP reconstructed images were created and reviewed. Radiation optimization: All CT scans at this facility use at least one of these dose optimization techniques: automated exposure control; mA and/or kV adjustment per patient size (includes targeted exams where dose is matched to clinical indication); or iterative reconstruction. Contrast material: 0mnipaque Contrast volume: 78 ml Contrast route: rt ac COMPARISON: No relevant prior studies available. FINDINGS: VASCULATURE: Right common carotid artery: Normal. No significant stenosis. No dissection or occlusion. Right internal carotid artery: Normal. Extracranial segment is patent with no significant stenosis. No dissection or occlusion. Right external carotid artery: Normal. No occlusion or significant stenosis. Right vertebral artery: There is an approximate 3 cm long segment of significant narrowing of the proximal right vertebral artery from the level of the C6-C7 disc space to the level of the C4-C5 disc space with tiny intimal flap visible on axial image 37 of series 9, consistent with right vertebral dissection. The remainder of the right vertebral artery is widely patent. Left common carotid artery: Normal. No significant stenosis. No dissection or occlusion. Left internal carotid artery: Normal. Extracranial segment is patent with no significant stenosis. No dissection or occlusion. Left external carotid artery: Normal. No occlusion or significant stenosis. Left vertebral artery: Normal. No significant stenosis. No dissection or occlusion. NECK: Bones/joints: No acute fracture. Soft tissues: Normal. No significant soft tissue swelling. IMPRESSION: Right proximal vertebral artery dissection, measuring approximately 3 cm. --------- EXAM: CT Head Without Contrast EXAM DATE/TIME: 07/20/2018 5:14 PM CLINICAL HISTORY: 33 years old, female; Pain; Other: Neck/back; Patient HX: Neck/back pain; Additional info: R/O stroke TECHNIQUE: Imaging protocol: Axial computed tomography images of the head/brain without contrast. Radiation optimization: All CT scans at this facility use at least one of these dose optimization techniques: automated exposure control; mA and/or kV adjustment per patient size (includes targeted exams where dose is matched to clinical indication); or iterative reconstruction. COMPARISON: CT CAROTID NECK CTA 07/20/2018 4:12 PM FINDINGS: Brain: No intracranial hemorrhage or mass effect. The CSF spaces and brain parenchyma density are within normal limits. No CT scan evidence of acute stroke. Ventricles: Unremarkable. No ventriculomegaly. Bones/joints: Unremarkable. No acute fracture. Sinuses: Visualized sinuses are unremarkable. No acute sinusitis. Mastoid air cells: Visualized mastoid air cells are unremarkable. No mastoid effusion. Soft tissues: Unremarkable. IMPRESSION: No acute abnormality. EXAM: CT Angiography Head With Contrast EXAM DATE/TIME: 07/20/2018 5:14 PM CLINICAL HISTORY: 33 years old, female; Abnormal findings; Other abnormal imaging; Patient HX: Right vertebral art dissection TECHNIQUE: Imaging protocol: Axial computed tomographic angiography images of the head with intravenous contrast using CT angiography protocol. 3D rendering: MIP reconstructed images were created and reviewed. COMPARISON: CT CAROTID NECK CTA 07/20/2018 4:12 PM FINDINGS: Right internal carotid artery: Unremarkable. Intracranial segment is patent with no significant stenosis. No aneurysm. Right anterior cerebral artery: Unremarkable. No occlusion or significant stenosis. No aneurysm. Right middle cerebral artery: Unremarkable. No occlusion or significant stenosis. No aneurysm. Right posterior cerebral artery: Unremarkable. No occlusion or significant stenosis. No aneurysm. Right vertebral artery: Unremarkable. No occlusion or significant stenosis. No aneurysm. Left internal carotid artery: Unremarkable. Intracranial segment is patent with no significant stenosis. No aneurysm. Left anterior cerebral artery: Unremarkable. No occlusion or significant stenosis. No aneurysm. Left middle cerebral artery: Unremarkable. No occlusion or significant stenosis. No aneurysm. Left posterior cerebral artery: Unremarkable. No occlusion or significant stenosis. No aneurysm. Left vertebral artery: Unremarkable. No occlusion or significant stenosis. No aneurysm. Basilar artery: Unremarkable. No occlusion or significant stenosis. No aneurysm. IMPRESSION: No acute findings. 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) Anxiety disorder, unspecified (Resolved 05/21/17) Anemia affecting third (Resolved 05/08/17) Anxiety (Resolved 05/21/17) Depression affecting (Resolved 01/30/17) Elevated serum glucose with glucosuria (Resolved 05/21/17) Encounter for IUD insertion (Resolved 09/17/17) Family History Father Myocardial infarction Mother Kidney stones Social History Smoking/Tobacco Use Status: Never Alcohol Intake: never Drug use: Never Substance use type: does not use Do you feel safe in your relationship?: Yes History History 4 Para Hx # Term Pregnancies 3 Multiple births Hx # Pregnancies Ectopic pregnancies AB induced Hx Number of Living Children 3 AB spontaneous 1
--- NOTE | 2018-07-21 12:49 | DSE_ITS ---
Date of service: 07/21/18 Time of Service: 12:46 DS: Diagnosis Discharge Diagnosis (1) Dissecting hemorrhage of right vertebral artery: Status: Acute Discharge Plan Disposition Patient Disposition: HOME Condition: Stable Discharge Details Reason For Visit: VERTEBRAL ARTERY DISSECTION Admit Date/Time: 07/20/18 19:58 Admit Provider: Rob Villeda Attending Provider: Rob Villeda Primary Care Provider: Bozena Tom Hospital Course Hospital Course: CC: Neck Pain HPI: 33 year old healthy woman, admitted 07/20 from [facility] Emergency Department with a diagnosis of Right Vertebral Artery Dissection. Mrs. Summers presented to the ED with a 3 day complaint of right sided neck pain with reported radiation down to her right shoulder. Her symptoms were not associated with any paresthesias, weakness, chest discomfort, dyspnea, or dizziness. Work-up included fairly unremarkable labwork, but with imaging showing a 3 cm right proximal Vertebral Artery Dissection, specifically noted as significant narrowing from the level of the C4-5 disc space to C6-7, with a tiny intimal flap visible consistent in finding with a dissection. The patient denied any trauma to her neck, although she admitted that her children with whom she plays with are often rough with her. She is w/ 1 spontaneous miscarriage and her children are 1, 3, and 12 years of age. She also admitted to some chiropractic manipulation in the back, including of her neck. She is not a smoker and does not have hypertension. [place] [facility] [place]Dr. Vazquez) was consulted who indicated that there would be no surgical intervention for this and recommended discussion with neurology. Subsequent phone [place] Beltre [place] [facility] [place] recommended antiplatelet therapy and follow up MRI/MRA and outpatient neurology follow up. Hospital Course: (1) Right vertebral artery Dissection: Patient remained asymptomatic overnight, with no evidence of acute TIA/CVA. She will continue with full dose aspirin. In-depth discussion was had with patient, and she was advised to avoid contact sports or physical activity affecting her neck including any rough housing with her children, and no further chiropractic treatments. A follow-up MRI/MRA of the head and neck will be obtained, and patient will be scheduled with a PCP (she has no primary) and neurology. Warning symptoms were discussed in detail, and patient advised to return to the ED immediately if she developed any such symptoms or worsening/change in her condition. She will also be maintained on PPI therapy, and only tylenol for pain control (She is ). She should remain on full dose Aspirin indefinitely until further guidance by neurology. Of note, there appears to be no reported history of unusual cardiac or connective tissue disorders in family, per discussion with patient. This case was further discussed with neurology attending from [facility] who endorsed this plan fully - as long as the patient is not exhibiting any signs of acute CVA/TIA or other neurological changes, and as long as she remains compliant with daily aspirin and physical limitations in activity as detailed above, no further hospitalization or monitoring is required. Home Meds and New Rx's Prescriptions: New acetaminophen [Tylenol] 325 mg Tablet 325 - 650 mg PO Q4H PRN PRNQty: 0 RF: 0 aspirin 325 mg Tablet,Delayed Release (Dr/Ec) 325 mg PO DAILY Qty: 0 RF: 0 Continued cholecalciferol (vitamin D3) 1,000 unit capsule 1,000 unit PO DAILY RF: 0 multivitamin [Multiple Vitamins] Tablet 1 tab PO DAILY RF: 0 ferrous sulfate [iron] 325 mg (65 mg iron) Tablet 325 mg PO DAILY RF: 0 omega 2-rml-yjy-fish oil [Fish Oil] 1,000 mg (120 mg-180 mg) Capsule 1 cap PO DAILY RF: 0 Discharge Instructions Additional Instructions: Please see a neurologist and Primary Care provider within 1 week of discharge. Information on these providers are being supplied to you at time of discharge. Stand Alone Forms: Nursing Discharge Form Referrals: Bozena Tom MD [Primary Care Provider] - (Please call Dr. Tom office on Sunday for a follow-up appointment for next week.) Activity:: No strenuous activity, contact sports, or physical activity involving the neck or heavy lifting. Equipment/Supplies:: No Equipment Needed Diet:: As Tolerated Discharge Orders Discharge Orders: Discharge Order (Routine); Ordered 07/21/18 Ordered By: Marcos Li DS: Data Vitals/I&O Vitals and I&O: Vital Signs Temperature 36.5 C 07/21/18 11:45 Temperature Source Tympanic 07/21/18 11:45 Pulse 70 07/21/18 11:45 Pulse Rhythm Regular 07/21/18 07:51 Pulse 75 07/20/18 18:10 Respiratory Rate 18 07/21/18 11:45 Respiratory Effort Non-Labored 07/21/18 07:51 Respiratory Depth Normal 07/21/18 07:51 Respiratory Pattern Normal 07/21/18 07:51 Blood Pressure 109/71 07/21/18 11:45 Pulse Oximetry 98 07/21/18 11:45 Oxygen Delivery Method Room Air 07/21/18 11:45 Oxygen Flow Rate 0 07/21/18 11:45 Pain Level 5 07/21/18 10:39 Comment 07/21/18 03:30 Intake & Output 07/20/18 07/21/18 07/21/18 23:59 11:59 23:59 Intake Total 110 / 110 Balance 110 / 110 Weight 77.111 kg 77.6 kg Intake: IV 10 / 10 Oral 100 / 100 Other: Urine Color Yellow Urine Appearance Clear Comment Pt voiding ad klarissa in toilet. Urine not seen at time of assessment. Pt denies sx. Voiding Methods Toilet Completed studies during hospitalization [Text1]: EXAM: CT Angiography Neck With Contrast EXAM DATE/TIME: 07/20/2018 3:45 PM CLINICAL HISTORY: 33 years old, female; Pain; Other: Neck pain; Patient HX: R neck pain, R/O carotidr neck pain, TECHNIQUE: Imaging protocol: Axial computed tomographic angiography images of the neck with intravenous contrast using CT angiography protocol. 3D rendering: MIP reconstructed images were created and reviewed. Radiation optimization: All CT scans at this facility use at least one of these dose optimization techniques: automated exposure control; mA and/or kV adjustment per patient size (includes targeted exams where dose is matched to clinical indication); or iterative reconstruction. Contrast material: 0mnipaque Contrast volume: 78 ml Contrast route: rt ac COMPARISON: No relevant prior studies available. FINDINGS: VASCULATURE: Right common carotid artery: Normal. No significant stenosis. No dissection or occlusion. Right internal carotid artery: Normal. Extracranial segment is patent with no significant stenosis. No dissection or occlusion. Right external carotid artery: Normal. No occlusion or significant stenosis. Right vertebral artery: There is an approximate 3 cm long segment of significant narrowing of the proximal right vertebral artery from the level of the C6-C7 disc space to the level of the C4-C5 disc space with tiny intimal flap visible on axial image 37 of series 9, consistent with right vertebral dissection. The remainder of the right vertebral artery is widely patent. Left common carotid artery: Normal. No significant stenosis. No dissection or occlusion. Left internal carotid artery: Normal. Extracranial segment is patent with no significant stenosis. No dissection or occlusion. Left external carotid artery: Normal. No occlusion or significant stenosis. Left vertebral artery: Normal. No significant stenosis. No dissection or occlusion. NECK: Bones/joints: No acute fracture. Soft tissues: Normal. No significant soft tissue swelling. IMPRESSION: Right proximal vertebral artery dissection, measuring approximately 3 cm. --------- EXAM: CT Head Without Contrast EXAM DATE/TIME: 07/20/2018 5:14 PM CLINICAL HISTORY: 33 years old, female; Pain; Other: Neck/back; Patient HX: Neck/back pain; Additional info: R/O stroke TECHNIQUE: Imaging protocol: Axial computed tomography images of the head/brain without contrast. Radiation optimization: All CT scans at this facility use at least one of these dose optimization techniques: automated exposure control; mA and/or kV adjustment per patient size (includes targeted exams where dose is matched to clinical indication); or iterative reconstruction. COMPARISON: CT CAROTID NECK CTA 07/20/2018 4:12 PM FINDINGS: Brain: No intracranial hemorrhage or mass effect. The CSF spaces and brain parenchyma density are within normal limits. No CT scan evidence of acute stroke. Ventricles: Unremarkable. No ventriculomegaly. Bones/joints: Unremarkable. No acute fracture. Sinuses: Visualized sinuses are unremarkable. No acute sinusitis. Mastoid air cells: Visualized mastoid air cells are unremarkable. No mastoid effusion. Soft tissues: Unremarkable. IMPRESSION: No acute abnormality. EXAM: CT Angiography Head With Contrast EXAM DATE/TIME: 07/20/2018 5:14 PM CLINICAL HISTORY: 33 years old, female; Abnormal findings; Other abnormal imaging; Patient HX: Right vertebral art dissection TECHNIQUE: Imaging protocol: Axial computed tomographic angiography images of the head with intravenous contrast using CT angiography protocol. 3D rendering: MIP reconstructed images were created and reviewed. COMPARISON: CT CAROTID NECK CTA 07/20/2018 4:12 PM FINDINGS: Right internal carotid artery: Unremarkable. Intracranial segment is patent with no significant stenosis. No aneurysm. Right anterior cerebral artery: Unremarkable. No occlusion or significant stenosis. No aneurysm. Right middle cerebral artery: Unremarkable. No occlusion or significant stenosis. No aneurysm. Right posterior cerebral artery: Unremarkable. No occlusion or significant stenosis. No aneurysm. Right vertebral artery: Unremarkable. No occlusion or significant stenosis. No aneurysm. Left internal carotid artery: Unremarkable. Intracranial segment is patent with no significant stenosis. No aneurysm. Left anterior cerebral artery: Unremarkable. No occlusion or significant stenosis. No aneurysm. Left middle cerebral artery: Unremarkable. No occlusion or significant stenosis. No aneurysm. Left posterior cerebral artery: Unremarkable. No occlusion or significant stenosis. No aneurysm. Left vertebral artery: Unremarkable. No occlusion or significant stenosis. No aneurysm. Basilar artery: Unremarkable. No occlusion or significant stenosis. No aneurysm. IMPRESSION: No acute findings. 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 02/02/16) Anxiety disorder, unspecified (Resolved 05/21/17) Anemia affecting third (Resolved 05/08/17) Anxiety (Resolved 05/21/17) Depression affecting (Resolved 01/30/17) Elevated serum glucose with glucosuria (Resolved 05/21/17) Encounter for IUD insertion (Resolved 09/17/17) Family History Father Myocardial infarction Mother Kidney stones Social History Smoking/Tobacco Use Status: Never Alcohol Intake: never Drug use: Never Substance use type: does not use Do you feel safe in your relationship?: Yes History History 4 Para Hx # Term Pregnancies 3 Multiple births Hx # Pregnancies Ectopic pregnancies AB induced Hx Number of Living Children 3 AB spontaneous 1
--- NOTE | 2018-07-21 18:13 | PDOC.CMDIS ---
LACE Index Scoring Tool - Questions: Length of Stay (in days): 2 Acuity (Admit via E.D.?): Yes E.D. Visits: 1 - Answers: Total Score: 6 Risk of Readmission: Low Risk Care Management Discharge Reason for Hospitalization: Vertebral Artery Dissection Discharge Plan: Arnie will return home and follow up with PCP within one week. Her car is at the hospital and she will drive herself home. Patient/Family Education Needs: Discharge instructions.
== END 2018-07-21 14:45 | disposition home or self-care (01) ==
LOC: ER 20:31 → MS 21:13
PROVIDERS: Admitting Provider Internal Medicine; Emergency Provider Student in an Organized Health Care Education/Training Program; PCP Family Medicine; Visit Provider Internal Medicine
DX: I77.74 Dissection of vertebral artery (principal); M54.2 Cervicalgia
CPT/HCPCS: 36415; 70496; 70498; 80048; 80061; 83721; 93005; 99217; 99223; 99285; J1650; 70450; 93010; 99220; G0378; J3490; Q9967

== ENCOUNTER 2018-07-25 16:27 | Outpatient (REF) | payer MEDICAID, SELFPAY ==
[2018-07-25 20:55] LABS: HCT 37.8 % (36.0-46.0); HGB 13.2 g/dL (12.0-15.5); Mean Corp. HGB Concentration 34.9 g/dL (32.0-36.0); Mean Corpuscular Hemoglobin 30.3 pg (27.0-33.0); Mean Corpuscular Volume 86.7 fL (80-95); Mean Platelet Volume 11.1 fL (8.0-11.0); Platelet Count 279 x1000/uL (130-400); RBC 4.36 m/cumm (4.00-5.20); White Blood Cell Count 10.11 k/cumm (4.4-10.8)
[2018-07-25 21:00] LABS: Iron 22 ug/dL (50-175); Total Iron Binding Capacity 288 ug/dL (250-450); Transferrin Sat 8 % (15-50)
== END 2018-07-25 16:47 ==
LOC: NCHCN 16:27
PROVIDERS: PCP Nurse Practitioner Family; Visit Provider Nurse Practitioner Family
DX: D64.9 Anemia, unspecified (principal)
CPT/HCPCS: 85027; 83540; 83550

== ENCOUNTER 2019-04-14 15:50 | Outpatient (REF) | payer MEDICAID, SELFPAY ==
--- NOTE | 2019-04-14 15:20 | PAPFT_PTH ---
PATIENT: EMA MCCARTHY LOC: [facility] U#:[id number] AGE/SX: 33/F ROOM: RE04/14/[address]: Vero Fowler NP : 1985 BED: DIS: 04/14/2019 SPEC #: [id number] RECD: 04/14/19 17:49 STATUS: AMANDA REYared #: [id number] FLACO: 04/14/19 15:[address]: Vero Fowler NP DEPT: [facility] Cytology RECD BY: Jaci Negron ENTERED: 04/14/19 17:49 SP TYPE: PAPFT OTHR DR: Casandra Martino Tissues: 1 - CX/ENDOCX FOR PAP SMEARS Procedures: PAP THIN PREP/[facility] Screening HPV DNA PROBE Comments: [id number] (JOANNE/MANOLO)
[2019-04-15 15:45] LABS: Chlamydia Result Negative (Negative); GC Result Negative (Negative)
== END 2019-04-14 16:10 ==
LOC: LBN 15:50
PROVIDERS: PCP Nurse Practitioner Family; Visit Provider Nurse Practitioner Women's Health
DX: Z12.4 Encounter for screening for malignant neoplasm of cervix (principal); Z11.3 Encounter for screening for infections with a predominantly sexual mode of transmission
CPT/HCPCS: 87491; 87591; 88142; 87624

== ENCOUNTER 2019-05-26 16:31 | Outpatient (REF) | payer MEDICAID, SELFPAY ==
--- NOTE | 2019-05-26 15:30 | ENDO_PTH ---
PATIENT: EMA MCCARTHY LOC: [facility] U#:[id number] AGE/SX: 33/F ROOM: RE05/26/[address]: Renetta Dean : 1985 BED: DIS: 05/26/2019 SPEC #: [id number] RECD: 05/26/19 17:52 STATUS: AMANDA REYared #: [id number] FLACO: 05/26/19 15:[address]: Renetta Dean DEPT: Surgical Specimen RECD BY: Jaci Negron ENTERED: 05/26/19 17:53 SP TYPE: Endo OTHR DR: Casandra Martino Tissues: 1 - ENDOCERVICAL BX/CURRETTE Procedures: GROSS AND MICRO LEVEL 4 Comments: [id number]
== END 2019-05-26 16:51 ==
LOC: LBN 16:31
PROVIDERS: PCP Nurse Practitioner Family; Visit Provider Obstetrics & Gynecology Gynecology
DX: N88.8 Other specified noninflammatory disorders of cervix uteri (principal); R87.610 Atypical squamous cells of undetermined significance on cytologic smear of cervix (ASC-US); R87.810 Cervical high risk human papillomavirus (HPV) DNA test positive
CPT/HCPCS: 88305